=== PATIENT | female | born 1975 | race Caucasian/White ===

== ENCOUNTER 2019-02-02 19:42 | Inpatient (IN) | payer OTHER ==
[~2019-02-02] VITALS: Ht 170.2 cm; Wt 80.3 kg
== END 2019-02-04 09:25 | disposition home or self-care (01) | DRG 812 ==
LOC: ER 19:42 → OB/GYN 21:31
PROVIDERS: ADMIT Obstetrics & Gynecology
PROC: 30233N1 Transfusion of Nonautologous Red Blood Cells into Peripheral Vein, Percutaneous Approach (ICD-10-PCS; principal; 2019-02-02)
DX: D50.0 Iron deficiency anemia secondary to blood loss (chronic) (principal); D25.1 Intramural leiomyoma of uterus; N84.0 Polyp of corpus uteri

== ENCOUNTER 2021-04-22 07:45 | Inpatient (IN) | payer OTHER ==
[~2021-04-22] VITALS: Ht 170.2 cm; Wt 81.6 kg
[2021-04-24] MEDS ORDERED: FERROUS SULFAT325 MG (15:58)
== END 2021-04-27 11:33 | disposition home or self-care (01) | DRG 743 ==
LOC: O/R 04-24 07:32 → SURH 04-24 07:45 → OB/GYN 04-24 13:46 → O/R 04-24 14:22 → SURG 04-24 16:54 → SURH 04-26 13:41
PROVIDERS: ADMIT Obstetrics & Gynecology; ATTEND Obstetrics & Gynecology
PROC: 0TJB8ZZ Inspection of Bladder, Via Natural or Artificial Opening Endoscopic (ICD-10-PCS; 2021-04-24)
PROC: 0UT90ZZ Resection of Uterus, Open Approach (ICD-10-PCS; principal; 2021-04-24 09:00)
DX: N72 Inflammatory disease of cervix uteri (principal); D25.1 Intramural leiomyoma of uterus; D25.0 Submucous leiomyoma of uterus; N81.11 Cystocele, midline; D50.0 Iron deficiency anemia secondary to blood loss (chronic); N92.0 Excessive and frequent menstruation with regular cycle